=== PATIENT | female | born 1945 | race Caucasian/White ===

== ENCOUNTER 2017-07-17 05:04 | Inpatient (IN) | payer OTHER ==
[2017-06-25 11:46] VITALS: BMI 24.0
--- NOTE | 2017-06-25 12:21 | PAT Medication Instructions ---
Service Date Jun 25, 2017. Current Home Medication List Amlodipine (Norvasc), 5 MG PO HS Hydrocodone/Acetaminophen 5MG/325MG ([place] 5MG/325MG), 1 TABLET PO Q6H PRN for N Ibuprofen (Advil), 400 MG PO PRN Varenicline (Chantix), 1 TAB PO BID [Benazepril/Hctz], 1 TAB PO HS Medication Instructions For Your Scheduled Surgery - Hold the following medications 7 days prior to surgery per surgeon's instructions: Ibuprofen (Advil), 400 MG PO PRN - Hold the following medications 24 hours prior to surgery: [Benazepril/Hctz], 1 TAB PO HS - Hold the following medications the morning of surgery: Varenicline (Chantix), 1 TAB PO BID - Take the following medications the morning of surgery with a sip of water OTHERWISE NOTHING TO EAT OR DRINK AFTER MIDNIGHT: Hydrocodone/Acetaminophen 5MG/325MG ([place] 5MG/325MG), 1 TABLET PO Q6H PRN (may take if needed up to 4 hours prior to surgery) - Take the following medications as scheduled the night before surgery: Hydrocodone/Acetaminophen 5MG/325MG ([place] 5MG/325MG), 1 TABLET PO Q6H PRN Amlodipine (Norvasc), 5 MG PO HS Varenicline (Chantix), 1 TAB PO BID If you have any questions please call us at [phone] or [phone] or [phone]
--- NOTE | 2017-06-25 13:34 | DIAGNOSTIC IMAGING REPORT ---
CHEST PREADMISSION(PA/LAT) CLINICAL HISTORY: PAT preoperative evaluation COMPARISON STUDY: No previous studies for comparison. FINDINGS: The bones soft tissues and hemidiaphragms are normal. The cardiomediastinal silhouette is normal. The lungs are clear. The pulmonary vasculature is normal. IMPRESSION: Negative chest. The above report was generated using voice recognition software. It may contain grammatical, syntax or spelling errors. Electronically signed by: Bebo Mitchell M.D. 06/25/2017 1:33 PM Dictated Date/Time: 06/25/2017 1:33 PM
[2017-06-25 14:23] LABS: URINE APPEARANCE CLEAR (CLEAR); URINE BILIRUBIN NEG (NEG); URINE COLOR YELLOW; URINE EPITHELIAL CELL AUTO >30 /lpf (0-5); URINE NITRITE NEG (NEG); URINE SPECIFIC GRAVITY 1.016 (1.000-1.030); UROBILINOGEN NEG (NEG)
[2017-06-25 14:31] LABS: MANUAL MICROSCOPIC REQUIRED? NO; REVIEW REQ? NO
[2017-07-17] VITALS (8 sets, daily range): BP systolic 103–154; BP diastolic 63–87; PULSE 61–88; TEMP 36.3–36.7; O2SAT 96–99; Ht 172.7 cm; Wt 72.4 kg
[~2017-07-17] VITALS: Ht 172.7 cm; Wt 72.4 kg
[~2017-07-17 05:04] MED LIST: AMLO-110 PO; BENAZEPRIL/HCTZ PO; CHN/1 PO; HYDR-5688 PO; IBUP-1050 PO
[2017-07-17] MEDS ORDERED: ACET-1256 PO (05:33)
[2017-07-17] MEDS ORDERED: LACTATED RINGER'S 1000ML 1,000 ML IV SCH (06:00)
[2017-07-17] MEDS ORDERED: CEFAZOLIN 1000MG/55 ML D5W IV SCH (06:00)
[2017-07-17] MEDS ORDERED: FENTANYL CITRATE INJ 50 MCG/1 ML 2 ML VIAL ONE ×4 (06:39→11:22)
[2017-07-17] MEDS ORDERED: MIDAZOLAM HCL 1 MG/ML 2ML VIAL ONE (06:39)
[2017-07-17] MEDS ORDERED: BUPIVACAINE/EPINEPHRINE 0.5% MPF 1:200,000 10 ML VIAL ONE ×2 (07:03→07:04)
[2017-07-17] MEDS ORDERED: BACITRACIN 50000 UNIT VIAL ONE (07:04)
--- NOTE | 2017-07-17 07:27 | History & Physical Bridge Note ---
H&P Re-Evaluation Bridge Note: I have examined the patient, reviewed the History & Physical and in the interval since the performance of the History & Physical I have noted the following changes of clinical significance: No changes noted
--- NOTE | 2017-07-17 07:28 | History and Physical ---
History & Physical Date Jul 17, 2017. Chief Complaint Back and leg pain History of Present Illness The patient is a 72 year old female with complaints of back and leg pain Additional History Hepatic Disease: No Endocrine Disorder: No Kidney Disease: No Hypertension: Yes Heart Disease: No Bleeding Tendencies: No Infectious Diseases: No Allergies Coded Allergies: Metoprolol (Unverified Allergy, Unknown, SLOW HEART RATE, 07/17/17) PER PT, EXTREME SYMPTOMATIC BRADYCARDIA Statins (Unverified Allergy, Unknown, MYALGIA, 07/17/17) Home Medications Scheduled Acetaminophen (Tylenol), 2 TAB PO Q6 Amlodipine (Norvasc), 5 MG PO HS Ibuprofen (Advil), 400 MG PO PRN Varenicline (Chantix), 1 TAB PO BID [Benazepril/Hctz], 1 TAB PO HS Scheduled PRN Hydrocodone/Acetaminophen 5MG/325MG ([place] 5MG/325MG), 1 TABLET PO Q6H PRN for N Physical Examination Skin: warm/dry, no rash Eyes: normal inspection, EOMI, sclerae normal ENT: normal ENT inspection, pharynx normal Head: normocephalic, atraumatic Neck: supple, no adenopathy, trachea midline Respiratory/Chest: lungs clear, normal breath sounds, no respiratory distress Cardiovascular: regular rate, rhythm, no edema, no murmur Abdomen / GI: normal bowel sounds, non tender Back: normal inspection Extremities: normal inspection, normal range of motion Neurologic/Psych: no motor/sensory deficits, alert, normal reflexes, oriented x 3 Diagnosis Lumbar spinal stenosis Plan of Treatment Lumbar decompression fusion L2 to S1 with possible iliac bolts
[2017-07-17] MEDS ORDERED: FENTANYL CITRATE INJ 50 MCG/1 ML 2 ML VIAL IV PRN (07:30)
[2017-07-17] MEDS ORDERED: ATROPINE SULFATE 0.1 MG/ML 5ML SYR IV PRN (07:30)
[2017-07-17] MEDS ORDERED: EpHEDrine SULFATE INJ 50 MG/ML AMP IV PRN (07:30)
[2017-07-17] MEDS ORDERED: HYDROmorphone INJ 1 MG/ML SYR IV PRN ×2 (07:30→13:30)
[2017-07-17] MEDS ORDERED: ONDANSETRON INJ 2 MG/ML 2 ML VIAL IV PRN (07:30)
[2017-07-17] MEDS ORDERED: HYDROmorphone INJ 2 MG/ML SYR/VIAL ONE ×3 (08:00→11:40)
[2017-07-17] MEDS ORDERED: DEXAMETHASONE SOD INJ 4 MG/ML VIAL ONE (09:44)
[2017-07-17] MEDS ORDERED: LIDOCAINE HCL 2% 2 ML VIAL (20MG/ML) ONE (09:44)
[2017-07-17] MEDS ORDERED: PROPOFOL IV EMULSION 10 MG/ML 20 ML VIAL IV ONE (09:44)
[2017-07-17] MEDS ORDERED: ONDANSETRON INJ 2 MG/ML 2 ML VIAL ONE ×2 (09:44→09:47)
[2017-07-17] MEDS ORDERED: EpHEDrine SULFATE 50MG/5ML SYR ONE (09:47)
[2017-07-17] MEDS ORDERED: GLYCOPYRROLATE INJ 0.2 MG/ML VIAL ONE (09:47)
[2017-07-17] MEDS ORDERED: NEOSTIGMINE METHYLSULFATE 1 MG/ML 10ML VIAL ONE (09:47)
[2017-07-17] MEDS ORDERED: FLOSEAL HEMOSTATIC MATRIX 10ML TOP ONE (11:22)
[2017-07-17] MEDS ORDERED: SODIUM CHLORIDE 0.9% 1000ML 1,000 ML IV SCH (11:27)
[2017-07-17] MEDS ORDERED: hydrOXYzine HCL 25 MG TAB PO PRN (11:30)
[2017-07-17] MEDS ORDERED: ALUMINUM/MAGNESIUM SUSP 30 ML UDC PO PRN (11:30)
[2017-07-17] MEDS ORDERED: MAGNESIUM HYDROXIDE SUSP 30 ML UDC PO PRN (11:30)
[2017-07-17] MEDS ORDERED: FAMOTIDINE 20 MG TAB PO PRN (11:30)
[2017-07-17] MEDS ORDERED: PROMETHAZINE HCL INJ 12.5 MG in SODIUM CHLORIDE 0.9% 50ML 50 ML IV PRN (11:30)
[2017-07-17] MEDS ORDERED: METOCLOPRAMIDE HCL INJ 5 MG/ML 2 ML VIAL IV PRN (11:30)
[2017-07-17] MEDS ORDERED: ACETAMINOPHEN 500 MG TAB PO PRN (11:30)
[2017-07-17] MEDS ORDERED: BISACODYL 10 MG SUPP PR PRN (11:30)
[2017-07-17] MEDS ORDERED: ACETAMINOPHEN IV 100 ML IV PRN (11:30)
[2017-07-17] MEDS ORDERED: LORAZEPAM INJ 0.5 MG in SYRINGE 0 ML IV PRN (11:30)
[2017-07-17] MEDS ORDERED: DO NOT ADMINISTER FLU VACCINE PRN ×3 (11:30)
[2017-07-17] MEDS ORDERED: HYDROmorphone HCL 0.5MG/ML 50 ML CASSETTE IV PRN (11:30)
[2017-07-17] MEDS ORDERED: NALOXONE HCL 0.4 MG/1 ML VIAL/CARP IV PRN ×2 (11:30)
[2017-07-17] MEDS ORDERED: SOD PHOSPHATE/SOD BIPHOSPHATE ENEMA 132 ML BTL PR PRN (11:30)
[2017-07-17] MEDS ORDERED: DO NOT ADMINISTER PNEUMOCOCCAL VACCINE PRN ×2 (11:30)
--- NOTE | 2017-07-17 11:37 | [facility] Operative Report ---
Operative Report Operative Date Jul 17, 2017. Pre-Operative Diagnosis Lumbar spinal stenosis Post-Operative Diagnosis same as preop Procedure(s) Performed #1 lumbar decompression medial facetectomies L2-3 L3 4 L4 5 L5-S1. #2 posterior spinal fusion L2 to S1. #3 bilateral SI joint fusion. #4 placement of posterior segmental instrumentation L2 S1 with bilateral iliac bolts. #5 MRI fusion L2-3 L5-S1. #6 placement peek cage 8 x 22 at L23 and 10 x 20 L5-S1. #7 placement of locally harvested morcellized autograft gutters. #8 placement of osteo-amp in the interbody space and infuse collagen sponge mask graft the posterior gutters and SI joints. Surgeon Dr. Dakota Luna Digital Assistant Surgeon(s) Júnior Smith PA-C Estimated Blood Loss 500 ml Findings Severe spinal stenosis herniated disc post discharge of scoliosis Specimens none Description of Procedure Patient was met with preoperatively case discussed all questions were addressed. After informed consent patient was taken back to the operative suite and after intubation placed in a prone position the Jarod table on top Nirmal frame. All bony promises well-padded eyes inspected to ensure there is no external pressure placed upon them. This point the lumbar spines prepped draped nostril fashion. Sharp dissection with the assistance of Bovie cautery was performed onto an exposing the lamina and transverse processes of L2-L3 L4- L5 sacral Carolyn and bilateral SI joints. From a caudal to cephalad fashion complete laminectomy of L5 4 3 and 2 was performed addressing severe lateral recess and foraminal stenosis as well as disc herniation at the L2-3 level on the left. After this complete pedicle screws are placed in L2-L3 L4 L5 S1 levels bilaterally as well as bilateral iliac bolts. Through a transforaminal approach on the right a complete discectomy of L5-S1 was performed and plate created subcortical bleeding bone and a 10 x 22 mm peek cage filled with osteo- amp tapped in position. Then proceeded L2 3 on the left performed a complete discectomy through a transforaminal approach. An plates curetted to subcortical bleeding bone and a 8 x 22 mm peek cage filled with osteoamp tapped in position. The purposes bindu then contoured and locked into place bilaterally. A cross-link was locked in place. Transverse processes of L2-L3 L4-L5 the sacral alar in the bilateral SI joints were then burred to subcortical bleeding bone. Infuse collagen sponge mask graft and locally harvested morcellized autograft packed into the bilateral SI joints in the posterior lateral gutters. 15 round ADAMARIS drain inserted. Incision then closed with 1 Vicryl fascia 2-0 Vicryl subcutaneously 4-0 Monocryl for final skin closure Steri-Strip sterile dressing placed patient we can take PACU stable condition. Please note Tony Smith present at the entire procedure involved in patient positioning complex portions of the surgery and final skin closure. I attest to the content of the Intraoperative Record and any orders documented therein. Any exceptions are noted below.
[2017-07-17] MEDS ORDERED: HYDROmorphone HCL 0.5MG/ML 50 ML CASSETTE ONE (11:56)
--- NOTE | 2017-07-17 12:11 | DIAGNOSTIC IMAGING REPORT ---
LUMBAR SPINE 2 OR 3 VIEW CLINICAL HISTORY: L2-S1 POSTERIOR SPINAL FUSION, POSSIBLE ILIAC BOLTS COMPARISON STUDY: No previous studies for comparison. Fluoroscopy time: 45.4 seconds. FINDINGS: 4 fluoroscopic images were submitted for interpretation. These images demonstrate L2-L3 and L5-S1 discectomies with interbody spacer placement. Iliac bolts are noted. There are bilateral pedicle screws at the L2, L3, L5 and S1 levels with a right pedicle screw at the L4 level. Interconnecting rods are present. Hardware is intact. Posterior decompression is noted. IMPRESSION: Fluoroscopic images demonstrating lumbosacral fusion/discectomy, as described above. Electronically signed by: Reg Boo M.D. 07/17/2017 12:10 PM Dictated Date/Time: 07/17/2017 12:08 PM
--- NOTE | 2017-07-17 12:32 | Anesthesiology Progress Note ---
Anesthesia Post Op Note Date & Time Jul 17, 2017 at 12:32 Vital Signs Pain Intensity: 0 Vital Signs Past 12 Hours Date Time Temp Pulse Resp B/P (MAP) Pulse Ox O2 Delivery O2 Flow Rate FiO2 07/17/17 12:20 77 16 121/66 98 Nasal Cannula 4 07/17/17 12:10 74 16 107/67 98 Oxymask 10 07/17/17 12:00 78 16 119/58 99 Oxymask 10 07/17/17 11:53 36.2 75 16 109/61 99 Oxymask 10 07/17/17 05:46 36.6 65 20 154/87 98 Room Air Notes Mental Status: alert / awake / arousable, participated in evaluation Pt Amnestic to Procedure: Yes Nausea / Vomiting: adequately controlled Pain: adequately controlled Airway Patency, RR, SpO2: stable & adequate BP & HR: stable & adequate Hydration State: stable & adequate Anesthetic Complications: no major complications apparent
[2017-07-17] MEDS ORDERED: ROCURONIUM BROMIDE 10 MG/ML 5 ML VIAL IV ONE (12:55)
[2017-07-17] MEDS: SODIUM CHLORIDE 0.9% 1000ML 1,000 ML IV SCH ×3 (13:44→23:59)
[2017-07-17] MEDS: ONDANSETRON INJ 2 MG/ML 2 ML VIAL IV PRN (13:48)
[2017-07-17] MEDS: CEFAZOLIN IV 2,000 MG in DEXTROSE 5% 50ML 50 ML IV SCH ×2 (15:40→23:58)
[2017-07-17] MEDS ORDERED: NURSING VERBAL MED ORDER ONE (17:35)
[2017-07-17] MEDS: DEXAMETHASONE INJ 6 MG in SYRINGE 0 ML IV SCH (18:08)
[2017-07-17] MEDS ORDERED: HYDROmorphone INJ 0.5 MG/0.5 ML SYR IV PRN (18:15)
[2017-07-17] MEDS ORDERED: BENAZEPRIL PO SCH (21:00)
[2017-07-17] MEDS ORDERED: HCTZ PO SCH (21:00)
[2017-07-17] MEDS: OXYCODONE HCL IR 5 MG TAB (IMMEDIATE RELEASE) PO PRN (21:11)
[2017-07-17] MEDS: AMLODIPINE BESYLATE 5 MG TAB PO SCH (21:11)
[2017-07-17] MEDS: VARENICLINE (CHANTIX) 1 MG TAB PO SCH (21:11)
[2017-07-17] MEDS: DOCUSATE SODIUM/SENNA 50/8.6MG TAB PO SCH (21:12)
[2017-07-17] MEDS: LORAZEPAM 0.5 MG TAB PO PRN (22:16)
[2017-07-18] VITALS (7 sets, daily range): BP systolic 99–126; BP diastolic 63–77; PULSE 57–79; TEMP 36.4–36.9; O2SAT 90–95
[2017-07-18] MEDS: OXYCODONE HCL IR 5 MG TAB (IMMEDIATE RELEASE) PO PRN ×5 (01:36→22:56)
[2017-07-18] MEDS: DEXAMETHASONE INJ 6 MG in SYRINGE 0 ML IV SCH ×2 (01:36→09:21)
[2017-07-18] MEDS ORDERED: OXYCODONE HCL IR 5 MG TAB (IMMEDIATE RELEASE) PO PRN (06:00)
[2017-07-18] MEDS ORDERED: DC PCA ONE (06:00)
[2017-07-18] MEDS ORDERED: HYDROmorphone INJ 0.5 MG/0.5 ML SYR IV PRN (06:00)
[2017-07-18] MEDS: ONDANSETRON INJ 2 MG/ML 2 ML VIAL IV PRN (06:22)
[2017-07-18] MEDS: SODIUM CHLORIDE 0.9% 1000ML 1,000 ML IV SCH ×2 (06:26→12:48)
[2017-07-18 07:30] LABS: COMPLETE YES; HEMATOCRIT 29.4 % (37-47); IG% 0.5 %; LYMPH ABS # 0.66 K/uL (1.2-3.4); MEAN CELL VOLUME 91.3 fL (80-100); MEAN CORPUSCULAR HEMOGLOBIN 31.1 pg (25-34); MEAN PLATELET VOLUME 9.6 fL (7.4-10.4); MONO % 5.3 %; NEUT % 89.2 %; PLATELET COUNT 238 K/uL (130-400); RED BLOOD COUNT 3.22 M/uL (4.2-5.4); WHITE BLOOD COUNT 13.28 K/uL (4.8-10.8)
[2017-07-18 08:07] LABS: BUN/CREATININE RATIO 18.7 (10-20); CALCIUM 8.4 mg/dl (8.5-10.1); CREATININE 0.79 mg/dl (0.60-1.20); POTASSIUM 4.1 mmol/L (3.5-5.1)
--- NOTE | 2017-07-18 09:07 | Progress Note ---
Progress Note Date of Service Jul 18, 2017. Progress Note Pain well controlled. Some cramping left lower extremity. This is resolved at this time. She is in chair and sitting complete. Vital signs are stable. Neurologically she is intact. Assessment status post multilevel lumbar decompression fusion. Planned this time initiate physical therapy advance her bowel regiment. Anticipate discharge next week possibly to rehabilitation.
[2017-07-18] MEDS: LORAZEPAM 0.5 MG TAB PO PRN ×2 (09:20→17:31)
[2017-07-18] MEDS: VARENICLINE (CHANTIX) 1 MG TAB PO SCH ×2 (09:21→20:49)
[2017-07-18] MEDS: GABAPENTIN 100 MG CAP PO SCH ×2 (09:27→20:48)
[2017-07-18] MEDS ORDERED: NURSING VERBAL MED ORDER SCH (09:45)
[2017-07-18] MEDS ORDERED: NURSING VERBAL MED ORDER ONE ×2 (10:45→13:00)
[2017-07-18] MEDS: BENAZEPRIL HCL 10 MG TAB PO SCH (12:48)
[2017-07-18] MEDS: HYDROCHLOROTHIAZIDE 25 MG TAB PO SCH (12:48)
[2017-07-18] MEDS: AMLODIPINE BESYLATE 5 MG TAB PO SCH (20:48)
[2017-07-18] MEDS: DOCUSATE SODIUM/SENNA 50/8.6MG TAB PO SCH (20:48)
[2017-07-19] VITALS (9 sets, daily range): BP systolic 94–115; BP diastolic 57–67; PULSE 71–87; TEMP 36.7–37.4; O2SAT 81–98
[2017-07-19] MEDS ORDERED: COUGH DROP (SUGAR FREE) LOZ 24 LOZ/1 BOX ONE (05:50)
[2017-07-19] MEDS: POLYETHYLENE (MIRALAX) 17 GM PACK PO SCH ×4 (05:53→23:57)
[2017-07-19] MEDS: OXYCODONE HCL IR 5 MG TAB (IMMEDIATE RELEASE) PO PRN ×2 (05:54→13:40)
[2017-07-19] MEDS ORDERED: COUGH DROP (SUGAR FREE) LOZ 24 LOZ/1 BOX PO PRN (06:00)
[2017-07-19] MEDS ORDERED: NURSING DECISION MEDICATION ORDER SCH (06:00)
--- NOTE | 2017-07-19 08:45 | Orthopedic Progress Note ---
Orthopedic Progress Note Date of Service Jul 19, 2017. Subjective Post OP Day: 2 Reports: complaints Additional Notes: Jihan is postoperative day 2 multilevel lumbar decompression with instrumented fusion. She has complaints of lower back pain with changing positions. Leg pain has resolved. She was ambling 55 feet with physical therapy yesterday. ADAMARIS drain output yesterday was 80 mL. She is passing flatus. No other complaints. Objective calves soft nontender, N/V intact, dressing C/D/I, A&O x3, toes mobile She is sitting in a chair in no obvious distress. Alert and oriented 3. Lumbar dressing is clean dry and intact. Lower extremities are neurovascular intact. CARLTON hose intact laterally. Calves are soft and nontender bilaterally. Date Time Temp Pulse Resp B/P (MAP) Pulse Ox O2 Delivery O2 Flow Rate FiO2 07/19/17 07:30 Nasal Cannula 07/19/17 07:23 92 Nasal Cannula 2.0 07/19/17 07:23 84 Room Air 07/19/17 07:04 36.9 87 17 101/60 (74) 91 Room Air 07/18/17 23:00 Room Air 07/18/17 23:00 36.7 79 17 107/67 (80) 90 Room Air 07/18/17 15:40 Room Air 07/18/17 15:33 36.9 74 18 114/69 (84) 95 Room Air 07/18/17 11:43 64 16 126/74 (91) 95 Room Air Assessment & Plan Assessment: Postoperative to multilevel lumbar decompression surgery and fusion Plan: the patient's oxygen level has dropped and she is now on 2 L nasal cannula cannula roughly anywhere from 90-92%. We'll order a chest x-ray this morning. She is at does have a positive smoking history. Otherwise will continue with physical therapy. Continue with pain control. We have discussed considering SNF upon discharge. Inhouse Planning DVT Prophylaxis: Nguyen
[2017-07-19] MEDS: BENAZEPRIL HCL 10 MG TAB PO SCH (09:05)
[2017-07-19] MEDS: HYDROCHLOROTHIAZIDE 25 MG TAB PO SCH (09:05)
[2017-07-19] MEDS: GABAPENTIN 100 MG CAP PO SCH ×2 (09:06→21:26)
[2017-07-19] MEDS: VARENICLINE (CHANTIX) 1 MG TAB PO SCH ×2 (09:06→21:26)
--- NOTE | 2017-07-19 12:02 | DIAGNOSTIC IMAGING REPORT ---
CHEST 2 VIEWS ROUTINE HISTORY: 72 years-old Female acute hypoxia. COMPARISON: Chest radiographs 06/25/2017 TECHNIQUE: AP sitting and lateral views of the chest FINDINGS: There is a trace left pleural effusion with linear left basilar opacities suggesting atelectasis. Lungs are hyperinflated with diaphragmatic flattening. No pneumothorax. Lung payne are otherwise clear. Cardiac silhouette is within normal limits. Fusion hardware of the lumbar spine is partially imaged. There is a small hiatal hernia with partially intrathoracic stomach. IMPRESSION: 1. Trace left pleural effusion with left basilar subsegmental atelectasis or pneumonia. 2. Mild hyperinflation. 3. Small hiatal hernia with partially intrathoracic stomach. The above report was generated using voice recognition software. It may contain grammatical, syntax or spelling errors. Electronically signed by: Stephen Doshi M.D. 07/19/2017 12:01 PM Dictated Date/Time: 07/19/2017 11:59 AM
[2017-07-19] MEDS ORDERED: SODIUM CHLORIDE 0.9% 1000ML 1,000 ML IV STA (13:18)
--- NOTE | 2017-07-19 13:31 | Medical Consult ---
Consultation Date of Consultation: Jul 19, 2017. Attending Physician: Mateo Luna D.O. Reason for Consultation: called by nurse to evaluate episodes of hypoxia History of Present Illness Jihan Majano is a 72 year old F admitted to orthopedic service s/p back surgery on 07/17/2017.(#1 lumbar decompression medial facetectomies L2-3 L3 4 L4 5 L5-S1. #2 posterior spinal fusion L2 to S1. #3 bilateral SI joint fusion. #4 placement of posterior segmental instrumentation L2 S1 with bilateral iliac bolts. #5 MRI fusion L2-3 L5-S1. #6 placement peek cage 8 x 22 at L23 and 10 x 20 L5-S1. #7 placement of locally harvested morcellized autograft gutters. #8 placement of osteo-amp in the interbody space and infuse collagen sponge mask graft the posterior gutters and SI joints) Medicine consult requested because of hypoxia documented by pulse oximetry. As per patient's nurse she was seen to be 90% on oxygen saturation last night. When off nasal cannula oxygen today her nurse observed oxygenation on pulse to be 84%. However, when on 3 liters/min nasal cannula, her pulse oximetry was observed by nurse to be around 94%. Patient had returned today from going to radiology for chest X ray When hospitalist medicine provider arrived to see the patient, patient was seen awake and alert sitting up in upright on the bed, not in any acute distress. She was breathing on 2 liter/min nasal cannula with pulse oxygen measuring her saturation to be 95% and above. During the physical exam, her oxygen was turned off and pulse oximetry continued to read 95%. Patient was able to sit up on the side of the bed with assistance from the nurse and speak without use of accessory muscles on room air. Patient denies feeling shortness of breath, of chest pain, or palpitations. She reports that when she was in radiology waiting for chest X ray, she felt momentarily lightheaded but otherwise was okay. Chest X ray shows following impression: 1. Trace left pleural effusion with left basilar subsegmental atelectasis or pneumonia. 2. Mild hyperinflation. 3. Small hiatal hernia with partially intrathoracic stomach. On my interpretation, X ray does not appear to show severe infiltrative process. Patient's WBC is 13, 000 but she is afebrile and unclear whether leukocytosis is from inflammatory and stress processes from post-op surgery versus infectious process. Patient denies feeling subjective fevers. She does report of feeling cold periodically and hands would turn blue and this has been a chronic problem. She denies history of rheumatologic problems such as Raynaud's phenomenon. She denies history of heart problems or respiratory problems in her health. She takes medications for hypertension at home. There is no tenderness on examination of calf muscles. Family History Patient reports no known family medical history. Social History Smoking Status: Current Every Day Smoker Allergies Coded Allergies: Metoprolol (Verified Adverse Reaction, Intermediate, SLOW HEART RATE, 07/17) PER PT, EXTREME SYMPTOMATIC BRADYCARDIA Statins (Verified Adverse Reaction, Mild, MYALGIA, 07/17/17) Current Inpatient Medications Current Inpatient Medications Medications (Trade) Dose Ordered Sig/Jose Route Start Time Stop Time Status Last Admin Dose Admin Promethazine HCl 12.5 mg/Sodium Chloride 50.5 ml @ 202 mls/hr Q6H PRN IV 07/17/17 11:30 08/16/17 11:29 07/17/17 17:50 202 MLS/HR Ondansetron HCl (Zofran Inj) 4 mg Q6H PRN IV 07/17/17 11:30 08/16/17 11:29 07/18/17 06:22 4 MG Metoclopramide HCl (Reglan Inj) 10 mg Q6H PRN IV 07/17/17 11:30 08/16/17 11:29 Lorazepam (Ativan Tab) 0.5 mg Q8H PRN PO 07/17/17 11:30 08/16/17 11:29 07/18/17 17:31 0.5 MG Lorazepam 0.5 mg/ Syringe 0.25 ml @ 1 mls/min Q8H PRN IV 07/17/17 11:30 08/16/17 11:29 Pneumococcal Polysaccharide Vaccine 1 ea PRN PRN N/A 07/17/17 11:30 08/16/17 11:29 Influenza Virus Vacc Triv Types A&B 1 ea PRN PRN N/A 07/17/17 11:30 08/16/17 11:29 Polyethylene (Miralax Powder Packet) 17 gm Q6 PO 07/19/17 06:00 08/18/17 05:59 07/19/17 12:51 17 GM Bisacodyl (Dulcolax Supp) 10 mg DAILY PRN VT 07/17/17 11:30 08/16/17 11:29 Magnesium Hydroxide (Milk Of Magnesia Susp) 30 ml DAILY PRN PO 07/17/17 11:30 08/16/17 11:29 Acetaminophen (Tylenol Tab) 1,000 mg Q8H PRN PO 07/17/17 11:30 08/16/17 11:29 07/18/17 09:20 1,000 MG Acetaminophen 100 ml @ 400 mls/hr Q8H PRN IV 07/17/17 11:30 08/16/17 11:29 07/17/17 22:16 400 MLS/HR Naloxone HCl (Narcan Inj) 0.1 mg Q5M PRN IV 07/17/17 11:30 08/16/17 11:29 Senna/Docusate Sodium (Senokot S Tab) 2 tab HS PO 07/17/17 21:00 08/16/17 20:59 07/18/17 20:48 2 TAB Sodium Biphosphate/ Sodium Phosphate (Fleet Enema) 132 ml ONE PRN VT 07/17/17 11:30 08/16/17 11:29 Hydroxyzine HCl (Vistaril Tab) 25 mg Q8H PRN PO 07/17/17 11:30 08/16/17 11:29 Al Hydroxide/Mg Hydroxide (Maalox Susp) 30 ml Q6H PRN PO 07/17/17 11:30 08/16/17 11:29 Famotidine (Pepcid Tab) 20 mg Q12 PRN PO 07/17/17 11:30 08/16/17 11:29 Diphenhydramine HCl (Benadryl Cap) 25 mg Q6H PRN PO 07/17/17 11:30 08/16/17 11:29 Amlodipine Besylate (Norvasc Tab) 5 mg HS PO 07/17/17 21:00 08/16/17 20:59 07/18/17 20:48 5 MG Varenicline (Chantix) 1 mg BID PO 07/17/17 21:00 08/16/17 20:59 07/19/17 09:06 1 MG Hydromorphone HCl (Dilaudid Inj) 1 mg Q3H PRN IV 07/17/17 13:30 07/31/17 13:29 Future hold Hydromorphone HCl (Dilaudid Inj) 0.5 mg Q3H PRN IV 07/17/17 18:15 07/31/17 18:14 Oxycodone HCl (Roxicodone Immediate Rel Tab) 5-10mg prn moderate to sev... Q4H PRN PO 07/17/17 21:15 07/31/17 21:14 07/19/17 05:54 10 MG Gabapentin (Neurontin Cap) 100 mg BID PO 07/18/17 09:00 08/17/17 08:59 07/19/17 09:06 100 MG Benazepril HCl (Lotensin Tab) 20 mg DAILY PO 07/18/17 11:30 08/17/17 11:29 07/19/17 09:05 20 MG Hydrochlorothiazide (Hydrochlorothiazide Tab) 12.5 mg DAILY PO 07/18/17 11:30 08/17/17 11:29 07/19/17 09:05 12.5 MG Menthol (Nice Dexter) 1 dexter PRN PRN PO 07/19/17 06:00 08/18/17 05:59 Review of Systems Constitutional: + chills, No fever Eyes: No worsening of vision ENT: No sore throat Respiratory: No cough, No shortness of breath, No dyspnea on exertion, No dyspnea at rest Cardiovascular: No chest pain, No palpitations Abdomen: No pain Musculoskeletal: No swelling, No calf pain Genitourinary - Female: No dysuria Neurologic: No numbness/tingling Psychiatric: No substance abuse Endocrine: No fatigue Hematologic / Lymphatic: No abnormal bleeding/bruising, No clotting problems Integumentary: No rash Physical Exam Date Time Temp Pulse Resp B/P (MAP) Pulse Ox O2 Delivery O2 Flow Rate FiO2 07/19/17 11:31 71 94/57 (69) 93 07/19/17 11:15 84 Room Air 07/19/17 10:51 87 92 07/19/17 07:30 Nasal Cannula 07/19/17 07:23 92 Nasal Cannula 2.0 07/19/17 07:23 84 Room Air 07/19/17 07:04 36.9 87 17 101/60 (74) 91 Room Air 07/18/17 23:00 Room Air 07/18/17 23:00 36.7 79 17 107/67 (80) 90 Room Air 07/18/17 15:40 Room Air 07/18/17 15:33 36.9 74 18 114/69 (84) 95 Room Air General Appearance: no apparent distress Head: normocephalic, atraumatic Eyes: normal inspection, EOMI ENT: hearing grossly normal, pharynx normal Neck: no adenopathy, no JVD Respiratory/Chest: chest non-tender, lungs clear, normal breath sounds, no respiratory distress, no accessory muscle use Cardiovascular: regular rate, rhythm, no edema, no JVD Abdomen/GI: normal bowel sounds, non tender, soft Back: + pertinent finding (ADAMARIS drain from the back) Extremities/Musculoskelatal: no calf tenderness, no pedal edema, normal range of motion Neurologic/Psych: alert, oriented x 3 Skin: normal color, warm/dry, no rash Laboratory Results Last 24 Hours Test 07/19/17 12:48 Assessment & Plan This is a 72 year old F s/p back surgery with medicine consulted for hypoxia on pulse oximetry. When examined on room air, there is not any decrease in saturation on pulse oximetry below 95%. Chest X ray appears generally clear of infiltrates. Physical Exam was benign. Have asked the patient's nurse to check pulse oximetry on forehead if the patient's pulse oximetry is low when on her finger. Based on what the patient is reporting with chronic episodes of turning blue when cold, there may be an undiagnosed Raynaud's phenomenon secondary to previously unknown rheumatoidal condition -Can send rheumatologic labs including: YISSEL, SCL-70 -There is no need to send ESR or D-Dimer at this time because these may be elevated due to post-op inflammation and would confuse the clinical picture -Can send Thyroid Function Test as patient having cold intolerance Have asked nurse to recheck blood pressure and start IV fluids There is no post-op EKG, obtain EKG. Monitor temperature for fever There is low suspicion for pulmonary embolism at this time based on stable clinical findings and no hypoxia noted on exam at this time. However, this differential should be kept in mind if patient continues to be hypoxic, or hypotensive, or becomes tachypneic or tachycardic. signed by Dr. Pacheco, attending physician [facility] hospitalist Patient expected to be followed by my colleague Dr. Anne for consult followup on 07/20/2017
[2017-07-19 13:44] LABS: HEMATOCRIT 28.2 % (37-47)
[2017-07-19 15:03] LABS: ARTERIAL BLD GAS O2 SATURATION 86.6 % (90-95); ARTERIAL BLOOD GAS BASE EXCESS 3.8 mEq/L (-9-1.8); ARTERIAL BLOOD GAS HCO3 28 mmol/L (19-24); ARTERIAL BLOOD GAS PO2 54 mm/Hg (80-95); ARTERIAL BLOOD GAS pH 7.47 (7.35-7.45)
[2017-07-19 15:04] LABS: COMPLETE YES; EOS % 0.1 %; HEMATOCRIT 29.1 % (37-47); IG% 0.4 %; LYMPH % 12.1 %; LYMPH ABS # 1.35 K/uL (1.2-3.4); MEAN CELL VOLUME 91.8 fL (80-100); MEAN CORPUSCULAR HEMOGLOBIN 31.2 pg (25-34); MEAN PLATELET VOLUME 9.4 fL (7.4-10.4); MONO % 9.5 %; NEUT % 77.9 %; PLATELET COUNT 193 K/uL (130-400); RED BLOOD COUNT 3.17 M/uL (4.2-5.4); WHITE BLOOD COUNT 11.19 K/uL (4.8-10.8)
[2017-07-19 15:08] LABS: ALLEN TEST POS (POS); O2 ADMINISTRATION ROOM AIR
[2017-07-19] MEDS: AMLODIPINE BESYLATE 5 MG TAB PO SCH (21:26)
[2017-07-19] MEDS: DOCUSATE SODIUM/SENNA 50/8.6MG TAB PO SCH (21:26)
[2017-07-20] MEDS: OXYCODONE HCL IR 5 MG TAB (IMMEDIATE RELEASE) PO PRN ×4 (00:32→23:36)
[2017-07-20 04:15] VITALS: O2SAT 83
[2017-07-20 04:16] VITALS: O2SAT 95
[2017-07-20] MEDS: POLYETHYLENE (MIRALAX) 17 GM PACK PO SCH ×3 (05:31→17:49)
[2017-07-20 07:09] VITALS: BP 104/68; PULSE 75; TEMP 36.7; O2SAT 97
--- NOTE | 2017-07-20 07:37 | Anesthesiology Progress Note ---
Anesthesia Post Op Note Date & Time Jul 20, 2017 at 07:36 Vital Signs Vital Signs Past 12 Hours Date Time Temp Pulse Resp B/P (MAP) Pulse Ox O2 Delivery O2 Flow Rate FiO2 07/20/17 07:09 36.7 75 16 104/68 (80) 97 Nasal Cannula 2.0 07/20/17 04:16 95 Nasal Cannula 3.0 07/20/17 04:15 83 Room Air 07/19/17 23:25 37.1 75 16 105/63 (77) 98 Nasal Cannula 3.0 07/19/17 23:17 Room Air 07/19/17 22:10 81 Room Air 0.0 Notes Mental Status: alert / awake / arousable, participated in evaluation Pt Amnestic to Procedure: Yes Nausea / Vomiting: adequately controlled Pain: adequately controlled Airway Patency, RR, SpO2: stable & adequate BP & HR: stable & adequate Hydration State: stable & adequate Anesthetic Complications: no major complications apparent
[2017-07-20] MEDS ORDERED: RXC5 PO (07:43)
--- NOTE | 2017-07-20 07:44 | Discharge Instructions ---
Discharge Instructions Date of Service Jul 20, 2017. Admission Reason for Admission: Lumbar Spinal Stenosis Discharge Discharge Diagnosis / Problem: lumbar stenosis Discharge Goals Goal(s): Improve function Activity Recommendations Activity Limitations: per Instructions/Follow-up section . Instructions / Follow-Up Instructions / Follow-Up ACTIVITY RECOMMENDATIONS: SELF CARE INSTRUCTIONS AFTER THORACIC/LUMBAR FUSIONS 1. You may walk to your tolerance. It is good exercise for your legs and back. Expect some back and intermittent leg aches and pains. 2. You may perform "counter-top" level activities (make a sandwich, mary with a project, etc.). 3. No bending or lifting of more than 10 pounds or back twisting of any nature (roll like a log when turning in bed). 4. You may ride in a car for 20-30 minutes at a time. No driving until after your first visit with your doctor. 5. Frequent changes of position and restricting sitting to 30 minutes at a time will help limit the amount of back spasms and stiffness you may experience. 6. You may discontinue the use of ambulatory aids (cane, crutches, etc.) once your strength and confidence allow. 7. You may employee benefits administrator the shower and let water strike your incision when you arrive home at least once daily. Do not take a tub bath, sit in a hot tub or go into a swimming pool until after your first recheck in the office. SPECIAL CARE INSTRUCTIONS: VERY IMPORTANT TO READ AND REVIEW A. Your surgical incision has been closed with a cosmetic suture under the skin that will dissolve in about 6 weeks. In 14 days, you can use a pair of clean scissors and cut the suture that is left outside of the skin at the ends of your incision. 1. The small skin tapes can be removed 7 days after surgery if they have not fallen off by that point. 2. You may keep the wound open to air as much as possible to promote healing after post-op day number 5 unless told otherwise by your doctor. 3. If you think the wound looks like it is becoming infected (redness or worsening drainage) and/or you are experiencing fever, chill or worsening back pain and muscle spasms, contact the office so that we may evaluate you as soon as possible. B. Complications are uncommon, but please contact us if you have any signs or symptoms of: 1. wound infection (fever higher than 102.5 degrees F, redness, separation of wound, drainage, or increasing pain from the incision) 2. blood clots in legs (pain, swelling, redness and warmth in legs) 3. urinary tract infection (fever higher than 102.5 degrees F, burning upon urination or increased frequency of urination) 4. nerve problems (inability to walk on your toes or heels, numbness, loss of bowel or bladder control) 5. any other symptoms that concern you C. Please call the office at if you have any concerns or questions about your operation or recovery. D. No smoking! Smoking drastically decreases the chance of a solid fusion. E. Do not take any anti-inflammatory medications (Indocin, Advil, Motrin, Aspirin, Naprosyn, etc.) as these may inhibit the chance of a solid fusion. Tylenol is okay to take for pain. MANAGING PAIN AFTER SPINAL SURGERY 1. Narcotic medication is intended for short-term use and will be provided for surgical pain. Surgical pain usually lasts for a period of 4-6 weeks. Narcotic medication includes Percocet, Vicodin, Darvocet, Tylenol #3 or Lortab. 2. Longer-term pain is more appropriately treated with non-narcotic medication such as Tylenol ES. 3. Muscle spasm is not appropriately treated with narcotics. Muscle relaxers such as Soma, Flexeril or Skelaxin can be used along with Tylenol ES. 4. Remember that we all live with some "aches and pains". This is not unusual or uncommon after an injury or as we get older. a. Back pain is expected and may include muscle spasms for 4 to 6 weeks after surgery. The pain should gradually improve. If the pain worsens for no apparent reason, please contact the office. b. Intermittent leg pain may also be experienced and should not be concerned about unless it worsens for no apparent reason. If so, please contact the office. 5. We will provide appropriate medication within the normal guidelines of their prescribed use. We will also be very cautious and aware of potential abuse and extended duration of patients' medication needs. a. Pain medications are for your comfort and to assist with sleep and rest so that the tissue can heal. They are not provided in order to return to normal activity and should not be used through the day. To do so or worsening pain at night can result from ongoing tissue damage and development of tolerance to the prescribed medicine. 6. Please allow 2-3 days to process refills. Prescriptions will not be mailed but must be picked up at the office. FOLLOW UP VISIT: Keep your scheduled follow-up appointment. Any questions, please call the office at . Current Hospital Diet Patient's current hospital diet: Regular Diet Discharge Diet Recommended Diet: Regular Diet Procedures Procedures Performed: #1 lumbar decompression medial facetectomies L2-3 L3 4 L4 5 L5-S1. #2 posterior spinal fusion L2 to S1. #3 bilateral SI joint fusion. #4 placement of posterior segmental instrumentation L2 S1 with bilateral iliac bolts. #5 MRI fusion L2-3 L5-S1. #6 placement peek cage 8 x 22 at L23 and 10 x 20 L5-S1. #7 placement of locally harvested morcellized autograft gutters. #8 placement of osteo-amp in the interbody space and infuse collagen sponge mask graft the posterior gutters and SI joints. Pending Studies Studies pending at discharge: no Medical Emergencies . Who to Call and When: Medical Emergencies: If at any time you feel your situation is an emergency, please call 911 immediately. . Non-Emergent Contact Non-Emergency issues call your: Primary Care Provider . "Provider Documentation" section prepared by Mateo Luna. . VTE Core Measure Inpt VTE Proph given/why not?: Tha Westbrook, SCD's
[2017-07-20] MEDS: BENAZEPRIL HCL 10 MG TAB PO SCH (08:43)
[2017-07-20] MEDS: VARENICLINE (CHANTIX) 1 MG TAB PO SCH ×2 (08:43→20:42)
[2017-07-20] MEDS: GABAPENTIN 100 MG CAP PO SCH ×2 (08:43→20:42)
[2017-07-20] MEDS: HYDROCHLOROTHIAZIDE 25 MG TAB PO SCH (08:43)
[2017-07-20 08:45] VITALS: O2SAT 95
[2017-07-20] MEDS: ONDANSETRON INJ 2 MG/ML 2 ML VIAL IV PRN (12:44)
[2017-07-20 15:10] VITALS: BP 118/71; PULSE 77; TEMP 36.8; O2SAT 91
--- NOTE | 2017-07-20 15:21 | Progress Note ---
Progress Note Date of Service Jul 20, 2017. Progress Note Patient's pain is controlled. Leg pain markedly improved. Has not had a bowel movement as of yet. Positive flatus. Vital signs stable. Exam she is good strength testing does appear comfortable. Assessment status post multilevel lumbar decompression fusion replant this time will advance her bowel regimen anticipate discharge home tomorrow.
[2017-07-20] MEDS: AMLODIPINE BESYLATE 5 MG TAB PO SCH (20:41)
[2017-07-20] MEDS: DOCUSATE SODIUM/SENNA 50/8.6MG TAB PO SCH (20:43)
--- NOTE | 2017-07-20 22:13 | Progress Note ---
Medicine Progress Note Date & Time of Visit: Jul 20, 2017 at 1400. Subjective tolerating PO but is not a big eater at baseline pain is controlled but she has some issues with pain when moving smoker on Chantix she denies any cough, fevers, chills, shortness of breath or chest pain oxygen was weaned overnight and she is doing very well on room air Objective Last 8 Hrs Date Time Temp Pulse Resp B/P (MAP) Pulse Ox O2 Delivery O2 Flow Rate FiO2 07/20/17 15:30 Room Air 07/20/17 15:10 36.8 77 16 118/71 (87) 91 Room Air Physical Exam: GEN: WNWD, in no acute distress, alert and appropriate HEENT: NC/AT, normal sclerae, MMM CARDIO: reg rate, S1/2 heard without m/g/r LUNGS: CTA bilaterally, no crackles, rales or wheezes, good diaphragmatic excursion BACK: dry dressing in place(c/d/i) with ADAMARIS drain present-bloody serous drainage ABD: soft, non-tender, non-distended, no rebound or guarding, +BS EXTREMITY: RP and DP palpable 2+ bilat, no LE swelling or edema, extremities are warm and well-perfused, lower extremities are NVI NEURO: CN 2-12 grossly intact, sensation intact throughout MUSC: 5/5 strength throughout, no focal deficits SKIN: warm and dry Laboratory Results: 07/19/17 14:50 Red Blood Count 3.17, Mean Corpuscular Volume 91.8, Mean Corpuscular Hemoglobin 31.2, Mean Corpuscular Hemoglobin Concent 34.0, Mean Platelet Volume 9.4, Neutrophils (%) (Auto) 77.9, Lymphocytes (%) (Auto) 12.1, Monocytes (%) (Auto) 9.5, Eosinophils (%) (Auto) 0.1, Basophils (%) (Auto) 0.0, Neutrophils # (Auto) 8.73, Lymphocytes # (Auto) 1.35, Monocytes # (Auto) 1.06, Eosinophils # (Auto) 0.01, Basophils # (Auto) 0.00 07/18/17 06:55 Test 06/25/17 00:00 07/17/17 05:48 07/18/17 06:55 07/19/17 14:49 Urine Color YELLOW Urine Appearance CLEAR (CLEAR) Urine pH 5.0 (4.5-7.5) Urine Specific [place] 1.016 (1.000-1.030) Urine Protein NEG (NEG) Urine Glucose (UA) NEG (NEG) Urine Ketones NEG (NEG) Urine Occult Blood TRACE (NEG) Urine Nitrite NEG (NEG) Urine Bilirubin NEG (NEG) Urine Urobilinogen NEG (NEG) Urine Leukocyte Esterase TRACE (NEG) Urine WBC (Auto) 1-5 /hpf (0-5) Urine RBC (Auto) 5-10 /hpf (0-4) Urine Hyaline Casts (Auto) 1-5 /lpf (0-5) Urine Epithelial Cells (Auto) >30 /lpf (0-5) Urine Bacteria (Auto) NEG (NEG) Hepatitis C Antibody Screen NEG (NEG) Anion Gap 8.0 mmol/L (3-11) Est Creatinine Clear Calc Drug Dose 65.9 ml/min Estimated GFR () 87.3 Estimated GFR (Non- 75.3 BUN/Creatinine Ratio 18.7 (10-20) Calcium Level 8.4 mg/dl (8.5-10.1) Thyroxine (T4) 8.0 mcg/dl (4.5-10.9) Test 07/19/17 14:50 White Blood Count 11.19 K/uL (4.8-10.8) Red Blood Count 3.17 M/uL (4.2-5.4) Hemoglobin 9.9 g/dL (12.0-16.0) Hematocrit 29.1 % (37-47) Mean Corpuscular Volume 91.8 fL (80-100) Mean Corpuscular Hemoglobin 31.2 pg (25-34) Mean Corpuscular Hemoglobin Concent 34.0 g/dl (32-36) Platelet Count 193 K/uL (130-400) Mean Platelet Volume 9.4 fL (7.4-10.4) Neutrophils (%) (Auto) 77.9 % Lymphocytes (%) (Auto) 12.1 % Monocytes (%) (Auto) 9.5 % Eosinophils (%) (Auto) 0.1 % Basophils (%) (Auto) 0.0 % Neutrophils # (Auto) 8.73 K/uL (1.4-6.5) Lymphocytes # (Auto) 1.35 K/uL (1.2-3.4) Monocytes # (Auto) 1.06 K/uL (0.11-0.59) Eosinophils # (Auto) 0.01 K/uL (0-0.5) Basophils # (Auto) 0.00 K/uL (0-0.2) RDW Standard Deviation 48.1 fL (36.4-46.3) RDW Coefficient of Variation 14.3 % (11.5-14.5) Immature Granulocyte % (Auto) 0.4 % Immature Granulocyte # (Auto) 0.04 K/uL (0.00-0.02) Arterial Blood pH 7.47 (7.35-7.45) Arterial Blood Partial Pressure CO2 39 mmHg (35-46) Arterial Blood Partial Pressure O2 54 mm/Hg (80-95) Arterial Blood HCO3 28 mmol/L (19-24) Arterial Blood Oxygen Saturation 86.6 % (90-95) Arterial Blood Base Excess 3.8 mEq/L (-9-1.8) Arterial Blood Gas Delivery ROOM AIR Nathan Test POS (POS) Thyroid Stimulating Hormone (TSH) 1.450 uIu/ml (0.300-4.500) Date/Time Source Procedure Growth Status 06/25/17 00:00 Urine , Clean Catch Urine Culture - Final MORE THAN THREE TYPES OF ORGANISMS OK... Complete Assessment & Plan 72 yo F s/p lumbar laminectomy for spinal stenosis 1. Post-operative state s/p lumbar laminectomy -POD 3; surgery performed by Dr. Luna -post-operative pain well managed -monitor for acute blood loss with daily H&H -pt encouraged to utilize spirometry to prevent post-op infection -PT/OT -activity and wound care orders per ortho protocol -will continue to follow 2. HTN-controlled, cont Norvasc, lisinopril and HCTZ 3. Tobacco use-cont Chantix 4. Anemia-uncertain etiology without baseline values for comparison. Minimize phlebotomy. Follow-up as outpatient. DVT Prophylaxis: thigh high SCDs per Ortho Full Code Dispo-to rehab in next 1-2 days. Thank you for this consultation. We will follow the patient with you during their hospital stay. You can reach a member of the [facility] via pager @ [phone]. You can reach me via cell @ [phone]. Mikayla Anne DO [facility] Hospitalist Current Inpatient Medications: Current Inpatient Medications Medications (Trade) Dose Ordered Sig/Jose Route Start Time Stop Time Status Last Admin Dose Admin Promethazine HCl 12.5 mg/Sodium Chloride 50.5 ml @ 202 mls/hr Q6H PRN IV 07/17/17 11:30 08/16/17 11:29 07/17/17 17:50 202 MLS/HR Ondansetron HCl (Zofran Inj) 4 mg Q6H PRN IV 07/17/17 11:30 08/16/17 11:29 07/20/17 12:44 4 MG Metoclopramide HCl (Reglan Inj) 10 mg Q6H PRN IV 07/17/17 11:30 08/16/17 11:29 Lorazepam (Ativan Tab) 0.5 mg Q8H PRN PO 07/17/17 11:30 08/16/17 11:29 07/18/17 17:31 0.5 MG Lorazepam 0.5 mg/ Syringe 0.25 ml @ 1 mls/min Q8H PRN IV 07/17/17 11:30 08/16/17 11:29 Pneumococcal Polysaccharide Vaccine 1 ea PRN PRN N/A 07/17/17 11:30 08/16/17 11:29 Influenza Virus Vacc Triv Types A&B 1 ea PRN PRN N/A 07/17/17 11:30 08/16/17 11:29 Polyethylene (Miralax Powder Packet) 17 gm Q6 PO 07/19/17 06:00 08/18/17 05:59 07/20/17 17:49 17 GM Bisacodyl (Dulcolax Supp) 10 mg DAILY PRN OK 07/17/17 11:30 08/16/17 11:29 Magnesium Hydroxide (Milk Of Magnesia Susp) 30 ml DAILY PRN PO 07/17/17 11:30 08/16/17 11:29 07/19/17 19:15 30 ML Acetaminophen (Tylenol Tab) 1,000 mg Q8H PRN PO 07/17/17 11:30 08/16/17 11:29 07/18/17 09:20 1,000 MG Acetaminophen 100 ml @ 400 mls/hr Q8H PRN IV 07/17/17 11:30 08/16/17 11:29 07/17/17 22:16 400 MLS/HR Naloxone HCl (Narcan Inj) 0.1 mg Q5M PRN IV 07/17/17 11:30 08/16/17 11:29 Senna/Docusate Sodium (Senokot S Tab) 2 tab HS PO 07/17/17 21:00 08/16/17 20:59 07/19/17 21:26 2 TAB Sodium Biphosphate/ Sodium Phosphate (Fleet Enema) 132 ml ONE PRN OK 07/17/17 11:30 08/16/17 11:29 Hydroxyzine HCl (Vistaril Tab) 25 mg Q8H PRN PO 07/17/17 11:30 08/16/17 11:29 Al Hydroxide/Mg Hydroxide (Maalox Susp) 30 ml Q6H PRN PO 07/17/17 11:30 08/16/17 11:29 Famotidine (Pepcid Tab) 20 mg Q12 PRN PO 07/17/17 11:30 08/16/17 11:29 Diphenhydramine HCl (Benadryl Cap) 25 mg Q6H PRN PO 07/17/17 11:30 08/16/17 11:29 Amlodipine Besylate (Norvasc Tab) 5 mg HS PO 07/17/17 21:00 08/16/17 20:59 07/20/17 20:41 5 MG Varenicline (Chantix) 1 mg BID PO 07/17/17 21:00 08/16/17 20:59 07/20/17 20:42 1 MG Hydromorphone HCl (Dilaudid Inj) 1 mg Q3H PRN IV 07/17/17 13:30 07/31/17 13:29 Future hold Hydromorphone HCl (Dilaudid Inj) 0.5 mg Q3H PRN IV 07/17/17 18:15 07/31/17 18:14 Oxycodone HCl (Roxicodone Immediate Rel Tab) 5-10mg prn moderate to sev... Q4H PRN PO 07/17/17 21:15 07/31/17 21:14 07/20/17 12:02 10 MG Gabapentin (Neurontin Cap) 100 mg BID PO 07/18/17 09:00 08/17/17 08:59 07/20/17 20:42 100 MG Benazepril HCl (Lotensin Tab) 20 mg DAILY PO 07/18/17 11:30 08/17/17 11:29 07/20/17 08:43 20 MG Hydrochlorothiazide (Hydrochlorothiazide Tab) 12.5 mg DAILY PO 07/18/17 11:30 08/17/17 11:29 07/20/17 08:43 12.5 MG Menthol (Nice Dexter) 1 dexter PRN PRN PO 07/19/17 06:00 08/18/17 05:59
[2017-07-20] MEDS ORDERED: NURSING VERBAL MED ORDER ONE (22:30)
[2017-07-20 23:20] VITALS: BP 104/64; PULSE 82; TEMP 36.6; O2SAT 92
[2017-07-21 06:15] LABS: HEMATOCRIT 25.3 % (37-47); MEAN CELL VOLUME 89.4 fL (80-100); MEAN CORPUSCULAR HEMOGLOBIN 31.8 pg (25-34); MEAN CORPUSCULAR HGB CONC 35.6 g/dl (32-36); MEAN PLATELET VOLUME 9.3 fL (7.4-10.4); PLATELET COUNT 233 K/uL (130-400); RED BLOOD COUNT 2.83 M/uL (4.2-5.4); WHITE BLOOD COUNT 10.43 K/uL (4.8-10.8)
[2017-07-21 06:49] LABS: BUN/CREATININE RATIO 15.1 (10-20); CALCIUM 8.8 mg/dl (8.5-10.1); CREATININE 0.65 mg/dl (0.60-1.20); POTASSIUM 3.4 mmol/L (3.5-5.1)
[2017-07-21 07:16] VITALS: BP 97/63; PULSE 79; TEMP 36.9; O2SAT 94
[2017-07-21] MEDS: OXYCODONE HCL IR 5 MG TAB (IMMEDIATE RELEASE) PO PRN ×2 (08:33→13:30)
[2017-07-21] MEDS: GABAPENTIN 100 MG CAP PO SCH (08:33)
[2017-07-21] MEDS: VARENICLINE (CHANTIX) 1 MG TAB PO SCH (08:33)
[2017-07-21] MEDS ORDERED: POTASSIUM CHLORIDE 10 MEQ TABCR PO STA (08:59)
--- NOTE | 2017-07-21 08:59 | Discharge Summary ---
Orthopedic Discharge Summary Admission Date/Reason Jul 17, 2017 at 07:30 Lumbar Spinal Stenosis. Discharge Date/Disposition Jul 21, 2017 Home Diagnosis Principal Diagnosis: Lumbar spinal stenosis Admission Physical Exam As per Admitting History & Physical. Hospital Course Patient underwent lumbar decompression fusion tolerated this well as taken to the orthopedic floor postoperatively. Postop day #1 she initiate physical therapy improving consistently throughout the week. Leg symptoms improved. Subsequently discharged home discharge orders and instructions found on the chart for further review. Discharge Instructions Please refer to the electronic Patient Visit Report (Discharge Instructions) for additional information.
[2017-07-21 09:00] VITALS: BP 95/61
[2017-07-21 12:16] VITALS: BP 95/61; PULSE 79; TEMP 36.9; O2SAT 94
== END 2017-07-21 13:38 | DRG 460 ==
LOC: C.ACU 05:04 → C.3E 07:30 → ENRESERV 12:19
PROVIDERS: ADMIT Orthopaedic Surgery Orthopaedic Surgery of the Spine; ATTEND Orthopaedic Surgery Orthopaedic Surgery of the Spine
PROC: 0ST40ZZ Resection of Lumbosacral Disc, Open Approach (ICD-10-PCS; principal; 2017-07-17 07:45)
PROC: 0SG00A1 (ICD-10-PCS; principal; 2017-07-17 07:45)
PROC: 0ST20ZZ Resection of Lumbar Vertebral Disc, Open Approach (ICD-10-PCS; principal; 2017-07-17 07:45)
PROC: 0SG0071 Fusion of Lumbar Vertebral Joint with Autologous Tissue Substitute, Posterior Approach, Posterior Column, Open Approach (ICD-10-PCS; principal; 2017-07-17 07:45)
PROC: 0SG30A1 (ICD-10-PCS; principal; 2017-07-17 07:45)
DX: M48.06 Spinal stenosis, lumbar region (principal); Z79.899 Other long term (current) drug therapy; R25.2 Cramp and spasm; F17.200 Nicotine dependence, unspecified, uncomplicated